=== PATIENT | male | born 1965 | race Caucasian/White ===

== ENCOUNTER → 2016-12-26 18:08 | Outpatient (CLI) | payer BC | END | disposition home or self-care (01) | LOC: D.LABREF 18:08 | DX: I20.9 Angina pectoris, unspecified (principal) ==

== ENCOUNTER → 2017-01-23 09:43 | Outpatient (CLI) | payer MEDICAID ==
--- NOTE | 2017-01-29 09:12 | EC ---
PATIENT:SANTO LAKHANI DATE OF SERVICE: 01/23/17 SEX: M MEDICAL RECORD: [id number] DATE OF : 67 LOCATION:[facility] AGE OF PATIENT: 51 ADMISSION DATE: 01/23/17 REFERRING PHYSICIAN: INTERPRETING PHYSICIAN: TANNER DUNN MD ECHOCARDIOGRAM REPORT ECHO CHARGES 4 ECHO COMPLETE CLINICAL DIAGNOSIS: CHEST PAIN/SOB/DYSPNEA W/ EXERTION, CHF ECHOCARDIOGRAPHIC MEASUREMENTS (adult normal given) AC root (d.<3.7cm) 4.4 cm LV Septum d (<1.2 cm> 12 cm Valve Excursion 2.2 cm LV Septum (systole) 1.5 cm Left Atria (s.<4.0cm> 4.0 cm LVPW d(<1.2cm) 1.3 cm RV (d.<2.3cm) 3.2 cm LVPW (sytole) 1.6 cm LV diastole(<5.6CM) 4.8 cm MV E-F(>70mm/sec) cm LV systole 3.2 cm LVOT Diameter 2.2 cm MV exc.(>10mm) 1.6 cm Est.ejection fraction (50-75%) % Pericardial Effusion N DOPPLER: LVIT cm/sec A 98.0 cm/sec E 73.0 cm/sec LA cm/sec RVSP 37 mmHg LVOT 100 cm/sec AOP1/2T m/s Asc. Ao 116 cm/sec RVOT 121 cm/sec RA cm/sec PA 167 cm/sec AV Gradient Peak 5.41 mmHg AV Mean 2.92 mmHg AV Area 3.6 cm MV Gradient Peak 5.05 mmHg MV Mean 1.67 mmHg MV Area cm COMMENTS: Gang Rider: Oscar HARKINS Core Drill Operator: 4 Dr. Dunn TAPE# PACS DATE OF SERVICE: 01/23/2017 PROCEDURE: Transthoracic echocardiogram. FINDINGS: 1. The left ventricle is difficult to view in its entirety; however, the visualized portions of the endocardium indicate normal left ventricular systolic function with mild hypertrophy, ejection fraction of 55%, inflow characteristics consistent with diastolic dysfunction. 2. Mitral valve was visualized, difficult to see in its entirety; however, there ECHOCARDIOGRAM REPORT [id number] SANTO LAKHANI appears to be mild mitral regurgitation. 3. The left atrium is mildly dilated at 4.0 cm. 4. The tricuspid valve has mild tricuspid regurgitation with RVSP of 40 mmHg. 5. The pulmonic valve is not well visualized. 6. The right atrium is mildly enlarged. 7. The right ventricle is mildly enlarged. 8. The pericardium appears to have no pericardial effusion. CONCLUSIONS: The patient has evidence of hypertensive heart disease with preserved LV systolic function and evidence of diastolic dysfunction. TRANSINT:[id number] Voice Confirmation ID: [id number] DOCUMENT ID: [id number] TANNER DUNN MD at 0912 CC: [id number] DICTATION DATE: 01/24/17 0749 PUTTIER: 01/24/17 0812 DEP CLI 01/23/17 [id number] [place] [address]
== END | disposition home or self-care (01) ==
LOC: D.ECHO 01-12 09:30
DX: R07.9 Chest pain, unspecified (principal); I10 Essential (primary) hypertension; R06.02 Shortness of breath; R06.09 Other forms of dyspnea

== ENCOUNTER 2018-02-01 17:20 | Emergency (ER) | payer MEDICAID ==
[~2018-02-01] VITALS: Ht 170.2 cm; Wt 85.9 kg
[2018-02-01 17:33] VITALS: Ht 170.2 cm; Wt 85.9 kg
[2018-02-01] MEDS ORDERED: LISINOPRIL10 MG PO (17:38)
[2018-02-01] MEDS ORDERED: ZOCOR80 MG PO (17:38)
[2018-02-01] MEDS ORDERED: HYDROCHLOROTHIA25 MG PO (17:38)
[2018-02-01] MEDS ORDERED: CIPRO500 MG PO (17:39)
[2018-02-01] MEDS ORDERED: OMEPRAZOLE20 M1 PO (17:39)
[2018-02-01] MEDS ORDERED: NAPROSYN500 MG PO (17:39)
[2018-02-01] MEDS ORDERED: MOBIC7.5 MG PO (17:39)
[2018-02-01] MEDS ORDERED: DICLOFENAC SODI50 MG PO (19:22)
[2018-02-01 19:47] VITALS: BP 157/101
== END 2018-02-01 19:47 | disposition home or self-care (01) ==
LOC: D.ER 17:20
DX: M75.91 Shoulder lesion, unspecified, right shoulder (principal)

== ENCOUNTER → 2018-02-12 12:41 | Outpatient (CLI) | payer MEDICAID ==
[2018-02-01 17:33] VITALS: BMI 29.6
[~2018-02-12 12:41] MED LIST: CIPRO500 MG PO; DICLOFENAC SODI50 MG PO; HYDROCHLOROTHIA25 MG PO; LISINOPRIL10 MG PO; MOBIC7.5 MG PO; NAPROSYN500 MG PO; OMEPRAZOLE20 M1 PO; ZOCOR80 MG PO
== END | disposition home or self-care (01) ==
LOC: D.MRI 12:41
DX: M75.121 Complete rotator cuff tear or rupture of right shoulder, not specified as traumatic (principal)

== ENCOUNTER → 2018-02-25 09:54 | Outpatient (CLI) | payer MEDICAID ==
[2018-02-01 17:33] VITALS: BMI 29.6
== END | disposition home or self-care (01) ==
LOC: D.RAD 09:54
DX: J45.909 Unspecified asthma, uncomplicated (principal)

== ENCOUNTER 2018-03-20 08:44 | Day surgery (SDC) | payer MEDICAID ==
[2018-03-15 14:17] LABS: BASOPHILS 0.5 % (0-2); HEMATOCRIT 40.5 % (42.0-54.0); HEMOGLOBIN 13.7 g/dL (13.5-17.5); IMMATURE GRANULOCYTES 0.5 % (0-5); LYMPHOCYTES 17.1 % (15-50); MCH 30.2 pg (26.0-34.0); MCHC 33.8 g/dL (31.0-37.0); MCV 89.4 fL (80.0-100.0); MEAN PLATELET VOLUME 10.1 fL (7.4-10.4); MONOCYTES 8.2 % (2-11); NEUTROPHILS 70.7 % (40-80); PLATELET COUNT 305 10x3/uL (130-400); RBC 4.53 10x6/uL (4.20-6.10); RDW 12.4 % (11.5-14.5); WBC 6.6 10x3/uL (4.8-10.8)
[2018-03-15 14:26] LABS: CALC OSMOLALITY 283 mosm/kg (275-300); CARBON DIOXIDE 28.4 mmol/L (21.0-32.0); CHLORIDE - SERUM 104 mmol/L (98-107); CREATININE - SERUM 0.8 mg/dL (0.6-1.3); GLUCOSE 113 mg/dL (74-106); POTASSIUM - SERUM 3.9 mmol/L (3.5-5.1); SODIUM 141 mmol/L (136-145); UREA NITROGEN 18 mg/dL (7-18); eGFR NON AFRICAN AMERICAN > 90 mL/min (90-120)
[~2018-03-20] VITALS: Ht 170.2 cm; Wt 83.9 kg
[~2018-03-20 08:44] MED LIST changes: +BREO ELLIPTA 11 EACH INH; +SINGULAIR10 MG PO; +SPIRIVA; +VENTOLIN HFA18 GM INH
[2018-03-20 09:06] VITALS: BP 130/99; Ht 170.2 cm; Wt 83.9 kg
--- NOTE | 2018-03-20 16:18 | NUR ---
1610 ANES AT BEDSIDE. B/P BACK TO BASELINE, D/C CRITERIA MET.
--- NOTE | 2018-03-20 16:25 | NUR ---
REC'D FROM RR. FAMILY AT BEDSIDE. RUE NUMB FROM NERVE BLOCK. PT WIGGLES FINGERS. SLING IN USE. COFFEE BROUGHT TO PT.
--- NOTE | 2018-03-20 16:44 | NUR ---
1640 FL DIET SERVED.
== END 2018-03-20 17:45 | disposition home or self-care (01) ==
LOC: D.OPS 08:44 → D.PAN 10:30 → D.OPS 10:30
PROVIDERS: Orthopaedic Surgery
DX: M65.811 Other synovitis and tenosynovitis, right shoulder (principal); M19.011 Primary osteoarthritis, right shoulder; M75.41 Impingement syndrome of right shoulder; M75.121 Complete rotator cuff tear or rupture of right shoulder, not specified as traumatic; S43.431A Superior glenoid labrum lesion of right shoulder, initial encounter; X58.XXXA Exposure to other specified factors, initial encounter; Z01.812 Encounter for preprocedural laboratory examination

== ENCOUNTER 2018-10-12 17:57 | Emergency (ER) | payer MEDICAID ==
[~2018-10-12] VITALS: Ht 170.2 cm; Wt 88.6 kg
[2018-10-12 18:15] VITALS: Ht 170.2 cm; Wt 88.6 kg
[2018-10-12 18:44] VITALS: BP 132/88
== END 2018-10-12 18:45 | disposition home or self-care (01) ==
LOC: D.ER 17:57
DX: L25.5 Unspecified contact dermatitis due to plants, except food (principal)

== ENCOUNTER 2019-07-14 17:26 | Inpatient (IN) | payer MEDICAID ==
[~2019-07-14] VITALS: Ht 170.2 cm; Wt 94.5 kg
[2019-07-22] MEDS ORDERED: DICLOFENAC SODI50 MG PO (08:15)
[2019-07-22 09:10] LABS: ANION GAP 11.7 mmol/L (8-16); CALCIUM 9.3 mg/dL (8.5-10.1); CARBON DIOXIDE 28.2 mmol/L (21.0-32.0); CREATININE - SERUM 1.2 mg/dL (0.6-1.3); POTASSIUM - SERUM 3.9 mmol/L (3.5-5.1)
[2019-07-22 09:12] LABS: HEMATOCRIT 45.5 % (42.0-54.0); HEMOGLOBIN 15.5 g/dL (13.5-17.5); LYMPHOCYTES 14.3 % (15-50); MCHC 34.1 g/dL (31.0-37.0); MCV 88.2 fL (80.0-100.0); MEAN PLATELET VOLUME 10.5 fL (7.4-10.4); NEUTROPHILS 72.9 % (40-80); PLATELET COUNT 265 10x3/uL (130-400); RBC 5.16 10x6/uL (4.20-6.10); RDW 12.5 % (11.5-14.5); WBC 7.5 10x3/uL (4.8-10.8)
[2019-07-22 09:15] LABS: INR 1.06 (0.85-1.17); PROTIME 13.7 SECONDS (11.6-15.0)
[2019-07-22 09:16] LABS: APTT 31.4 SECONDS (22.8-39.4)
[2019-07-23 11:40] VITALS: BP 120/83; BMI 29.0
[2019-07-23 12:44] LABS: BILIRUBIN NEGATIVE (NEGATIVE); GLUCOSE NEGATIVE (NEGATIVE); KETONE SMALL mg/dL (NEGATIVE); NITRITE NEGATIVE (NEGATIVE); SPECIFIC GRAVITY 1.025 (1.005-1.020); UROBILINOGEN NORMAL (NORMAL)
[2019-07-23 12:46] LABS: WHITE CELLS - URINE 0-5 /hpf (NEGATIVE)
[2019-07-23 12:47] LABS: BACTERIA FEW /hpf (NEGATIVE); EPITHELIAL CELLS OCC /hpf (0-5); RED CELLS - URINE RARE /hpf (0-5)
--- NOTE | 2019-07-23 14:19 | NUR ---
PREPPED RIGHT SHOULDER WITH HIBICLENS AND ALCOHOL FROM SHOULDER TO FINGERTIPS CIRCUMFERENTIALLY PRIOR TO CHLORAPREP. PLASMA BLADE SET TO 6/8. BOVIE PAD RIGHT THIGH. [id number] EXP 12/02/20 TRAFFIC MONITORED IN AND OUT OF ROOM AND KEPT TO MINIMUM
[2019-07-23 16:56] VITALS: BP 129/83
--- NOTE | 2019-07-23 17:00 | NUR ---
PT RECIEVED TO 1208 VIA BED. VSS. DENIES PAIN. R ARM IN A SLING. PIV L WRIST. ANSWERS QUESTIONS AND FOLLOWS COMMANDS. GIVEN ICE CHIPS.
[2019-07-23 17:28] VITALS: BP 118/72; Ht 170.2 cm; Wt 94.5 kg
--- NOTE | 2019-07-23 19:00 | NUR ---
PATIENT ALERT AND ORIENTED. IN GOOD SPIRITS. HAS RIGHT SHOULDER INCISION WITH DAVOL DRAIN INSERTED AND ATTACHED. CURRENTLY COMPRESSED WITH BLOODY DRAINAGE IN CONTAINER. PATIENT HAS RIGHT SHOULDER SLING ON AND WEARING APPROPRIATELY. PATIENT STATES FINGERS ARE "NUMB" BUT WIGGLES THEM ON COMMAND. ASSESSED RADIAL PULSES, STRONG AND EQUAL. HAND AND DIGITS ARE WARM TO TOUCH WITH LESS THAN 3 SECOND CAPILLARY REFILL. PATIENT REPORTS NO PAIN AT THIS TIME. SPOKE WITH PATIENT AT LENGTH ABOUT STAYING "AHEAD OF PAIN". INSTRUCTED PATIENT THAT HE MAY FEEL TINGLING OR BURNING TYPE SENSATION WHEN BLOCK BEGINS TO WEAR OFF AND ADVISED PATIENT TO LET THIS NURSE KNOW WHEN DISCOMFORT STARTS TO ARISE WE HAVE MEDICATIONS AVAILABLE TO MANAGE PAIN AND KEEP AT TOLERABLE LEVEL. PATIENT VERBALIZES UNDERSTANDING. PATIENT CURRENTLY WEARING SCD'S BILATERALLY. HAS LEFT FOREARM 20G THAT IS INFUSING 0.45 NS AT 50 ML PER HOUR. PROVIDED INSTRUCTION ON POST OP ABX. PATIENT DENIES FURTHER QUESTIONS. HAS CALL LIGHT WITHIN REACH. CPOC.
--- NOTE | 2019-07-23 19:38 | MORECARE ---
CASE MANAGEMENT DISCHARGE SUMMARY PATIENT: SANTO LAKHANI UNIT: [id number] ADM DATE: 07/23/19 AGE: 53 : 67 SEX: M ROOM/BED: D.1208 AUTHOR: KAMARI UMANZOR PHYSICIAN: REFERRING PHYSICIAN: BRYANT AUGUSTIN DO DATE OF SERVICE: 07/23/19 Discharge Plan Patient Name: SANTO LAKHANI Facility: [facility]:[place] : 1965 Planned Disposition: Anticipated Discharge Date: Discharge Date: Expected LOS: 0 Initial Reviewer: [email or web address] Initial Review Date: 07/23/2019 Generated: 07/23/19 8:38 pm Patient Name: SANTO LAKHANI Page [id number] at 1938 All edits/amendments must be made on the electronic document DICTATION DATE: 07/23/191937 DISPOSAL WORKER: LOLA 07/23/191937 RPT#: [id number] DC DATE: STATUS: ADM IN [facility] [address] [place] [address] END OF REPORT
[2019-07-23 20:00] VITALS: BP 119/80
--- NOTE | 2019-07-23 20:00 | NUR ---
PROVIDED INCENTIVE SPIROMETER AND URINAL. PROVIDED TEACHING AND RECOMMENDATIONS OF USING INCENTIVE SPIROMETER 10X PER HOUR. PATIENT VERBALIZES UNDERSTANDING. PROVIDES RETURN DEMONSTRATION WITH INCENTIVE SPIROMETER. DENIES FURTHER NEEDS. CPOC.
--- NOTE | 2019-07-24 02:15 | NUR ---
ANSWERED PATIENT CALL LIGHT. PATIENT STATES HIS ARM IS BEGINNING TO HURT. DESCRIBES TINGLING TYPE SENSATION AND DISCOMFORT. PROVIDED PRN PAIN MEDICATION PER REQUEST. PATIENT TOLERATED WELL. CALL LIGHT REMAINS CLOSE. CPOC.
--- NOTE | 2019-07-24 03:05 | NUR ---
I have reviewed this patient and I concur with the Shift Assessment completed by the Licensed Practical Nurse today this shift.
[2019-07-24 04:00] VITALS: BP 105/70
--- NOTE | 2019-07-24 04:36 | NUR ---
EMPTYING PATIENT URINAL. PATIENT STATES HE IS HAVING DISCOMFORT. REQUESTS PAIN MEDICATION. PROVIDED KETORALAC IVP. PATIENT DENIES FURTHER NEEDS AT THIS TIME. CPOC.
--- NOTE | 2019-07-24 04:37 | NUR ---
PATIENT STATES PAIN HAS IMPROVED. DENIES FURTHER NEEDS. ENCOURAGE TO USE INCENTIVE SPIROMETER. CPOC.
--- NOTE | 2019-07-24 07:20 | NUR ---
PT IS RESTING IS SITTING IN BEDSIDE CHAIR WITH EYES OPEN. RESPIRATIONS ARE EVEN AND UNLABORED. PT IS AAO X 4. PT DENIES PRESENCE OF N/V AT THIS TIME. PT REPORTS SLIGHT PAIN RATED 3/10 AND DENIES NEEDS FOR ANALGESIA AT THIS TIME. WOUND VAC NOTED TO RIGHT HIP. DRESSING IS CDI AND WOUND VAC WORKING WITHOUT COMPROMISE. BILATERAL PEDAL PULSES PALP. CAP REFILL TO BLE < 3 SECONDS. PT DENIES PRESENCE OF NUMBNESS/TINGLING AT THIS TIME. ICE PACK ON RIGHT HIP. INCENTIVE SPIROMETER AT BEDSIDE. INCENTIVE SPIROMETER ENCOURAGED. ALL FALL PRECAUTIONS IN PLACE. PT DENIES FURTHER NEEDS. WILL CONT TO MONITOR.
--- NOTE | 2019-07-24 07:36 | NUR ---
PT IS RESTING IN BED WITH EYES OPEN. RESPIRATIONS ARE EVEN AND UNLABORED. PT IS AAO X 4. SLING TO RIGHT ARM. BILATERAL RADIAL PULSES PALP. BUE CAP REFILL IS < 3 SECONDS. SOBEIDA DRAIN TO RIGHT SHOULDER DRAINING SANGUINOUS. DRESSING TO RIGHT SHOULDER IS CDI. BS ARE ACTIVE X 4. INCENTIVE SPIROMETER AT BEDSIDE. PT GIVES APPROPRIATE RETURN DEMONSTRATION OF IS USE. SCDS ARE ON BLE. PT REPORTS NUMBNESS TO RIGHT THUMB ONLY. PT DENIES PRESENCE OF N/V. BED IS IN THE LOWEST POSITION. CALL LIGHT AND BEDSIDE TABLE ARE WITHIN REACH. SIDE RAILS X 2. PT DENIES FURTHER NEEDS. WILL CONT TO MONITOR.
[2019-07-24 08:13] LABS: CALCIUM 8.7 mg/dL (8.5-10.1); CARBON DIOXIDE 26.1 mmol/L (21.0-32.0); CREATININE - SERUM 1.3 mg/dL (0.6-1.3); POTASSIUM - SERUM 4.1 mmol/L (3.5-5.1)
[2019-07-24 08:15] VITALS: BP 133/82
[2019-07-24 08:19] LABS: MCHC 33.1 g/dL (31.0-37.0); MEAN PLATELET VOLUME 10.5 fL (7.4-10.4); RDW 12.3 % (11.5-14.5)
[2019-07-24 08:39] LABS: HEMOGLOBIN 11.9 g/dL (13.5-17.5); MCV 90.7 fL (80.0-100.0); RBC 3.97 10x6/uL (4.20-6.10); WBC 16.9 10x3/uL (4.8-10.8)
--- NOTE | 2019-07-24 08:39 | OP ---
PATIENT NAME: SANTO LAKHANI MEDICAL RECORD: [id number] :67 LOCATION:D.M3 D.1208 ADMISSION DATE:07/23/19 SURGEON: JAMES AUGUSTIN, DATE OF OPERATION: 07/23/2019 PROCEDURE PERFORMED: Right reverse total shoulder arthroplasty. PREOPERATIVE DIAGNOSES: Right shoulder osteoarthritis with recurrent rotator cuff tear. POSTOPERATIVE DIAGNOSES: Right shoulder osteoarthritis with recurrent rotator cuff tear. INDICATIONS: Mr. Lakhani is a 53-year-old male who had a rotator cuff repair done a year or so ago and he had continued pain and had some problems with therapy. He got an MRI, which showed a retear of the supraspinatus with 3 cm of retraction. He also has severe osteoarthritis of the shoulder. I informed him we could go in and do a reverse and it would be one surgery rather than doing a rotator cuff repair and probably shortly thereafter or at the same time with a longer recovery to do a total shoulder anatomic nature of the reverse. I told him that it was not likely we could repair the rotator cuff tendon due to the fact that it was retracted 3 cm and that we could try if it probably would not heal well. The patient was aware of the risks including infection, bleeding, fracture, damage to nerves and vessels in the area continued pain, dislocation, need for further surgery, infection and bleeding and he signed the consent. SURGEON: James Augustin DO DESCRIPTION OF PROCEDURE: The patient was taken to the operative suite, laid in supine position, given general anesthetic. After given a block by anesthesia in preoperative area and an LMA was placed. He was then positioned in a beach chair. The right shoulder was then prepped and draped in sterile fashion. Timeout was performed, everyone was in agreement as to the correct side, site, patient, and procedure. He was given 900 mg of clindamycin and then after being prepped and draped in sterile fashion, the timeout had been performed. I began by marking out an incision over the deltopectoral interval. Careful dissection was made down to the deltopectoral interval. The cephalic vein was encountered, taken laterally. We then removed the clavipectoral fascia and released the proximal centimeter of the pec. I then did a tenodesis of the long head of the biceps tendon there at that site and cut it. Then, I externally rotated the shoulder followed the bicep tendon up into the joint and tagged the subscapularis and peeled it off the anterior humerus. The joint then opened up and then put the guide into the intramedullary canal and cut the humerus through the guide. We then exposed the glenoid somewhat difficult and I cut more humerus giving us a little more room. I then, exposing the glenoid, I removed the labrum and got the centering pin and then drilled for the baseplate and then reamed and then drilled, measured to be 40 central screw, a 65 central screw was then placed, and two peripheral screws were placed in superior and inferior, 26 mm in length. I tried to put a posterior screw in, but did not catch, first the 18 and then a 22. These were removed. We then put the sphere on, impacted into place and then tightened down with the screw indicating good position. We then exposed the humerus, reamed and broached up to 5, cracked the medial calcar slightly and then I put a FiberWire around that. I trialed with a 3 and a 4 was dropped on the floor. A 3 with a 6 poly did not fit very well. I decided to go with 4 stem. Tied the FiberWire down around the calcar reducing the small crack OPERATIVE REPORT [id number] SANTO LAKHANI very easily and securely. A 4 was then impacted on and it did not further cracked the calcar, and then the tray was placed and the poly was impacted on. I then reduced the shoulder and it fit very well, reduced very well and did not shuck at all. There was no gap in between the glenosphere and the poly on the humerus. There was a good tightness of the conjoined tendon as well as the deltoid fibers and had good mobility of the shoulder without any instability. The shoulder was then irrigated with a 10% povidone iodine and 500 mL of normal saline solution and left in for 3 minutes. We then irrigated out the shoulder with a liter of normal saline, put in Ujlio powder, and vancomycin and tobramycin powder. Any bleeding was coagulated with Aquamantys throughout the procedure. We then put in a drain and the site was closed by Pineda Mittal, certified medicine aide and Konrad Jay, student inventory control assistant. I closed the interval with #1 Vicryl with simple interrupteds and then closed the skin with 2-0 Vicryl in inverted interrupted fashion, 4-0 Monocryl ran on the skin and Prineo glue on the skin. The drain was secured with two Tegaderms. The patient was dressed with Telfa and Tegaderm. He was awakened and taken to recovery in stable condition. Blood loss was approximately 300 mL. COMPLICATIONS: None. TRANSINT:[id number] Voice Confirmation ID: [id number] DOCUMENT ID: [id number] JAMES AUGUSITN DO at 0839 CC: [id number] DICTATION DATE: 07/23/19 1548 LOCAL [place] TRUCK DRIVER: 07/23/19 1643 ADM IN [facility] [address] [id number]
--- NOTE | 2019-07-24 09:19 | MORECARE ---
CASE MANAGEMENT DISCHARGE SUMMARY PATIENT: SANTO LAKHANI UNIT: [id number] ADM DATE: 07/23/19 AGE: 53 : 67 SEX: M ROOM/BED: D.1208 AUTHOR: KAMARI UMANZOR PHYSICIAN: REFERRING PHYSICIAN: BRYANT AUGUSTIN DO DATE OF SERVICE: 07/24/19 Discharge Plan Patient Name: SANTO LAKHANI Facility: [facility]:[place] : 1965 Planned Disposition: Home Anticipated Discharge Date: 07/23/19 Discharge Date: Expected LOS: 1 Initial Reviewer: [email or web address] Initial Review Date: 07/23/2019 Generated: 07/24/19 10:18 am Last DP export: 07/23/19 6:38 p Patient Name: SANTO LAKHANI Page [id number] at 0919 All edits/amendments must be made on the electronic document DICTATION DATE: 07/24/19917 DIRECTOR COMMERCIAL SALES: LOLA 07/24/19917 RPT#: [id number] DC DATE: STATUS: ADM IN [facility] [address] [place] [address] END OF REPORT
--- NOTE | 2019-07-24 10:46 | NUR ---
PT WITH HICCUPS THROUGHOUT START OF SHIFT. PT STATES THAT HICCUPS HAVE NOT CEASED AND IS REQUESTING "SOMETHING TO HELP GET RID OF THESE HICCUPS". DR. AUGUSTIN NOTIFIED OF PT REQUEST AND ORDER RECD FOR 25MG PO THORAZINE X 1. [address] PL[address] ORDER.
[2019-07-24 12:36] VITALS: BP 117/84
--- NOTE | 2019-07-24 12:45 | MORECARE ---
CASE MANAGEMENT DISCHARGE SUMMARY PATIENT: SANTO LAKHANI UNIT: [id number] ADM DATE: 07/23/19 AGE: 53 : 67 SEX: M ROOM/BED: D.1208 AUTHOR: KAMARI UMANZOR PHYSICIAN: REFERRING PHYSICIAN: BRYANT AUGUSTIN DO DATE OF SERVICE: 07/24/19 Discharge Plan Patient Name: SANTO LAKHANI Facility: [facility]:[place] : 1965 Planned Disposition: Home Anticipated Discharge Date: 07/23/19 Discharge Date: Expected LOS: 1 Initial Reviewer: [email or web address] Initial Review Date: 07/23/2019 Generated: 07/24/19 1:45 pm Last DP export: 07/24/19 8:19 a Patient Name: SANTO LAKHANI Page [id number] at 1245 All edits/amendments must be made on the electronic document DICTATION DATE: 07/24/19 1245 PURCHASER AUTOMOTIVE PARTS: LOLA 07/24/19 1245 RPT#: [id number] DC DATE: STATUS: ADM IN [facility] [address] [place] [address] END OF REPORT
--- NOTE | 2019-07-24 12:52 | MORECARE ---
CASE MANAGEMENT DISCHARGE SUMMARY PATIENT: SANTO LAKHANI UNIT: [id number] ADM DATE: 07/23/19 AGE: 53 : 67 SEX: M ROOM/BED: D.1208 AUTHOR: KAMARI UMANZOR PHYSICIAN: REFERRING PHYSICIAN: BRYANT AUGUSTIN DO DATE OF SERVICE: 07/24/19 Discharge Plan Patient Name: SANTO LAKHANI Facility: [facility]:[place] : 1965 Planned Disposition: Home Anticipated Discharge Date: 07/23/19 Discharge Date: Expected LOS: 1 Initial Reviewer: [email or web address] Initial Review Date: 07/23/2019 Generated: 07/24/19 1:52 pm Comments DCP- Discharge Planning Updated by [email or web address]: Barbara Early on 07/24/19 11:[address] CM met with patient to discuss initial discharge planning. Patient is in agreement to proceed with the assessment. Patient reports that he lives at home independently with his two g-children (12, 3) whom he has custody of. Patient is alert/oriented. Stairs/steps: 4 w/rails. PCP: Sharifa Andrade APRN. [facility]acy[facility]. Patient states they have been able to obtain all of their prescribed medications. HHS: No. DME: None. Patient states he receives Food stamps, WIC for the children and he unemployed d/t COVID. Emergency contact: Vincent Sanchez (father) [phone].Patient is Independent with all ADL's, medication management RELAY MECHANIC. CM discussed the availability of HH, Rehab, SNF, DME services, but denies the need. Patient denies the need for additional services at this time and feels safe returning to previous environment. Patient denies being hospitalized within the past 30 days. Transportation at time of discharge: Vincent Daniel. Patient voices no additional needs at this time. Last DP export: 07/24/19 11:46 a Patient Name: SANTO LAKHANI Page 50813 at 1252 All edits/amendments must be made on the electronic document DICTATION DATE: 07/24/191251 HOME THERAPY CLINICIAN: DM 07/24/191251 RPT#: [id number] DC DATE: STATUS: ADM IN [facility] [address] [place] [address] END OF REPORT
[2019-07-24 16:30] VITALS: BP 128/85
[2019-07-24 20:04] VITALS: BP 128/85
--- NOTE | 2019-07-24 21:43 | NUR ---
PT IS A&O X4. ABLE TO GET SELF TO THE BATHROOM WITHOUT ASSIST. VSS. PT IS ABLE TO VOICE HIS NEEDS. HE DENIES ANY NEEDS AT THIS TIME. CALL LIGHT WITHIN REACH AND BED IN LOWEST POSITION. NO SIGNS OF DISTRESS NOTED. WILL CONTINUE TO MONITOR.
--- NOTE | 2019-07-25 01:28 | NUR ---
PT RESTING CALMLY IN BED. BED IN LOWEST POSITION AND CALL LIGHT WITHIN REACH. WILL CONTINUE TO MONITOR.
[2019-07-25 05:35] VITALS: BP 125/90
--- NOTE | 2019-07-25 06:42 | NUR ---
PT REFUSED TX PT HAS SORE THROAT
[2019-07-25] MEDS ORDERED: OXYCODONE HCL5 M1 PO (07:26)
[2019-07-25] MEDS ORDERED: KEFLEX500 MG PO (07:26)
--- NOTE | 2019-07-25 07:58 | NUR ---
0725-DR AUGUSTIN HERE AND DAVOL DRAIN REMOVED FROM RIGHT SHOULDER. DRESSINGT REPLACED. TOLERATED WELL WITHOUT COMPLAINTS. NO HICCUPS AT PRESENT
[2019-07-25 08:02] LABS: HEMATOCRIT 34.4 % (42.0-54.0); MCH 29.3 pg (26.0-34.0); MCV 91.7 fL (80.0-100.0); MEAN PLATELET VOLUME 10.1 fL (7.4-10.4); RBC 3.75 10x6/uL (4.20-6.10); RDW 12.6 % (11.5-14.5)
[2019-07-25 08:05] VITALS: BP 144/103
[2019-07-25 08:18] LABS: ANION GAP 8.7 mmol/L (8-16); CALCIUM 8.4 mg/dL (8.5-10.1); CARBON DIOXIDE 29.4 mmol/L (21.0-32.0); CREATININE - SERUM 1.1 mg/dL (0.6-1.3); POTASSIUM - SERUM 4.1 mmol/L (3.5-5.1)
[2019-07-25 08:21] LABS: WBC 10.2 10x3/uL (4.8-10.8)
--- NOTE | 2019-07-25 09:57 | NUR ---
NO TX GIVEN PT REFUSED SORE THROAT AND GOING HOME
--- NOTE | 2019-07-25 10:41 | NUR ---
dressing changed this am per dr florez. remains clean dry and intact. iv removed and dressing applied. discharge instructions reviewed and questions answered. awaiting ride home
== END 2019-07-25 11:24 | disposition home or self-care (01) | DRG 483 ==
LOC: D.SDCHOLD 07-23 10:53 → D.M3 07-23 10:53 → D.M2 07-23 13:00 → D.M3 07-23 16:29
PROVIDERS: ADMIT Orthopaedic Surgery; ATTEND Orthopaedic Surgery
PROC: 0RRJ00Z Replacement of Right Shoulder Joint with Reverse Ball and Socket Synthetic Substitute, Open Approach (ICD-10-PCS; principal; 2019-07-23 13:00)
DX: M19.011 Primary osteoarthritis, right shoulder (principal); M75.101 Unspecified rotator cuff tear or rupture of right shoulder, not specified as traumatic; I10 Essential (primary) hypertension; J44.9 Chronic obstructive pulmonary disease, unspecified

== ENCOUNTER → 2019-07-14 21:58 | Outpatient (CLI) | payer MEDICAID ==
[2018-10-12 18:15] VITALS: BMI 30.6
== END | disposition home or self-care (01) ==
LOC: D.LABREF 21:58
PROVIDERS: ATTEND Orthopaedic Surgery
DX: M19.011 Primary osteoarthritis, right shoulder (principal)